=== PATIENT | female | born 1960 | race Caucasian/White ===

== ENCOUNTER 2017-11-18 12:16 | Emergency (ER) | payer OTHER ==
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
== END 2017-11-18 15:12 | disposition home or self-care (01) ==
LOC: JP.ED 12:16
DX: S70.12XA Contusion of left thigh, initial encounter (principal); F17.210 Nicotine dependence, cigarettes, uncomplicated; V87.7XXA Person injured in collision between other specified motor vehicles (traffic), initial encounter
CPT/HCPCS: 36415; 70450; 70450-26; 71045; 71045-26; 72125; 72125-26; 74177; 74177-26; 80053; 85025; 86850; 86900; 86901; 99284-25